=== PATIENT | female | born 1945 | race Caucasian/White ===

== ENCOUNTER 2020-07-23 12:35 | Outpatient (CLI) | payer MEDICARE, OTHER ==
--- NOTE | 2020-07-23 13:26 | RAD ---
Exam: Lumbar spine 4 views HISTORY: Lumbar stenosis with neurogenic claudication. FINDINGS: 5 lumbar type vertebra. Lumbar spine vertebral body height is maintained. No fracture. Visu alized sacrum and bony pelvis are intact Spondylolisthesis: L4-L5: Neutral 7.1 mm of anterolisthesis, flexion 8 mm of anterolisthesis, extension 8.4 mm of conchis listhesis. No pars defect. However, there is facet hypertrophy. IMPRESSION: Grade 1 anterolisthesis of L4 upon L5.
--- NOTE | 2020-07-23 13:27 | RAD ---
Exam:Right hip 2 views HISTORY: Arthritis. COMPARISON: None FINDINGS: Preserved joint spaces. Contrast femoral head is maintained. No fracture. IMPRESSION: No significant degenerative change.
--- NOTE | 2020-07-23 13:29 | RAD ---
SEVEN VIEWS CERVICAL SPINE: HISTORY: Cervical spondylosis. Arm and neck pain. FINDINGS: LUNGS: Oblique projections demonstrate moderate narrowing of the left and right neural foramen at C5- C6 and C6-C7. There is multilevel facet arthropathy. There is no prevertebral soft tissue swelling. Predental space is normal. Cervical spine vertebral dominik dy heights are maintained. There is no fracture. Severe loss of disc space height and osteophyte formation at C5-C6. Moderate loss of disc space height and osteophyte formation at C6-C7. In the AP projection, multi facet arthropathy. No malalignment. Spondylolisthesis: C7-T1: Neutral 3.7 mm of anterolisthesis, extension 3.0 mm of anterolisthesis, extension 3.9 mm of an terolisthesis. C4-C5: Neutral 2.4 mm of anterolisthesis, extension anterolisthesis resolves, flexion 1.9 mm of anter olisthesis. C3-C4: Neutral 1.7 mm of anterolisthesis, extension anterolisthesis resolves, flexion 2.5 mm of anter olisthesis. IMPRESSION: Multilevel degenerative changes of the cervical spine as detailed above. Transcribed Date/Time: 07/23/2020 1:34 PM
--- NOTE | 2020-07-23 14:17 | MRI ---
LUMBAR SPINE MRI WITHOUT CONTRAST: COMPARISON: 08/21/2016. HISTORY: Lumbar stenosis with neurogenic claudication. FINDINGS: Appropriate T1 marrow signal intensity of the lumbar vertebrae. Lumbar spine vertebrae. Lumbar spin e vertebral body height is maintained. No fracture. No significant STIR hyperintensity to suggest v ertebral body edema or ligamentous injury. Appropriate signal intensity of the visualized paraspinal muscles. There are T2 hyperintensities in the left and right renal cortex compatible with bilateral renal cortical cysts. Bilaterally, no obst ructive uropathy. Conus medullaris terminates at the inferior aspect of L1. SPONDYLOLISTHESIS: L1-L2: 2.8 mm of retrolisthesis. L4-L5: 4 mm of anterolisthesis. L5-S1: 3.1 mm of retrolisthesis. There are type I/type II Modic changes at L5-S1. T12-L1: Adequate disk hydration. No posterior disk abnormality. No significant central canal steno sis or significant neural foraminal narrowing. L1-L2: Adequate disk hydration. No posterior disk abnormality. No significant central canal stenos is. Patent bilateral neural foramina. L2-L3: Adequate disk hydration. No posterior disk abnormality. No significant central canal stenos is. Mild bilateral neural foraminal narrowing. L3-L4: Adequate disk hydration. No posterior disk abnormality. There is mild ligamentum flavum thi ckening and facet hypertrophy. No significant central canal stenosis. Patent bilateral neural chloe henrry. L4-L5: Disk desiccation with mild loss of disk space height. Broad-based disk bulge, ligamentum fla vum thickening, and facet hypertrophy. Moderate central canal stenosis. Patent bilateral neural for simone. L5-S1: Disk desiccation with moderate loss of disk space height. BROAD-BASED disk bulge abuts the t hecal sac. Minimal encroachment upon the right subarticular zone. Contact upon the traversing right S1 nerve root without significant obscuration. Left subarticular zone is patent. No significant ce ntral canal stenosis. Moderate bilateral facet hypertrophy. Moderate bilateral neural foraminal tiffany rowing. IMPRESSION: Multilevel degenerative change of the lumbar spine as detailed above. POS: PPP
== END 2020-07-23 12:36 | disposition home or self-care (01) ==
LOC: TBSIIMAG 12:35
PROVIDERS: ATTEND Anesthesiology Pain Medicine
DX: M47.812 Spondylosis without myelopathy or radiculopathy, cervical region (principal); M48.062 Spinal stenosis, lumbar region with neurogenic claudication; M19.90 Unspecified osteoarthritis, unspecified site; M43.16 Spondylolisthesis, lumbar region
CPT/HCPCS: 72050; 72110; 72148